=== PATIENT | male | born 1990 | race Two or more races ===

== ENCOUNTER 2023-09-24 08:44 | Emergency (ER) | payer SELFPAY ==
[~2023-09-24] VITALS: Ht 172.7 cm; Wt 70.0 kg
[2023-09-24 09:00] VITALS: O2SAT 100
[2023-09-24] MEDS ORDERED: MORPHINE SULFATE 4 MG/ML CPJ (NOT FOR IM USE) IV ONE ×2 (10:30→17:00)
[2023-09-24 11:36] LABS: HEMATOCRIT. 39.7 % (42.0-52.0); HEMOGLOBIN. 13.4 g/dL (14.0-18.0); MEAN CORPUSCULAR HEMOGLOBIN 31.9 pg (28.0-32.0); MEAN CORPUSCULAR HGB CONC 33.7 g/dL (31.0-37.0); MEAN CORPUSCULAR VOLUME 94.7 fL (80.0-94.0); PLATELET 388 x1000/uL (130-400); RED BLOOD CELL COUNT 4.19 mill/uL (4.7-6.1); RED CELL DISTRIBUTION WIDTH 12.7 % (11.6-14.6); WHITE BLOOD COUNT 20.3 x1000/uL (4.5-11.0)
[2023-09-24 11:44] LABS: DIFFERENTIAL COMMENT 1
[2023-09-24 12:12] LABS: ALANINE AMINOTRANSFERASE 23 IU/L (10-49); ALBUMIN 4.6 g/dL (3.2-4.8); ASPARTATE AMINOTRANSFERASE 48 IU/L (<34); BILIRUBIN TOTAL 0.7 mg/dL (0.1-1.0); CALCIUM 9.7 mg/dL (8.7-10.4); CARBON DIOXIDE 27 mEq/L (21-32); CHLORIDE 105 mEq/L (98-107); CREATININE 1.2 mg/dL (0.6-1.3); GLUCOSE 122 mg/dL (70-105); POTASSIUM 4.3 mEq/L (3.5-5.1); PROTEIN TOTAL 8.1 g/dL (6.0-8.3); SODIUM 140 mEq/L (136-145); UREA NITROGEN BLOOD 27 mg/dL (9-23)
[2023-09-24 12:28] LABS: PLATELET ESTIMATE NORMAL
[2023-09-24 20:53] VITALS: BP 114/73; PULSE 86; RESP 17; TEMP 98.9
[2023-09-24] MEDS ORDERED: IOHEXOL-300 100 ML BOTTLE ONE (23:17)
== END 2023-09-24 21:00 | disposition short-term general hospital (02) ==
LOC: ER 09:23
DX: S22.32XA Fracture of one rib, left side, initial encounter for closed fracture (principal); S27.9XXA Injury of unspecified intrathoracic organ, initial encounter; Y04.0XXA Assault by unarmed brawl or fight, initial encounter; Y93.89 Activity, other specified; Y92.89 Other specified places as the place of occurrence of the external cause; Y99.8 Other external cause status
CPT/HCPCS: 80053; 83690; 85025; 36415; 71045; 71260; 74177; 96374; 99285; Q9967; J2270; Z7610 ×3